=== PATIENT | female | born 1990 | race Caucasian/White ===

== ENCOUNTER 2017-01-13 10:48 | Emergency (ER) | payer OTHER ==
[~2017-01-13] VITALS: Ht 154.9 cm; Wt 83.9 kg
[~2017-01-13 10:48] MED LIST: BUTALB-ACETAMI1 EACH PO; CRUTCH1 EACH; HYDROXYZINE HCL25 MG PO; MEDROL4 M1 PO; NORCO 5-325 TA1 EACH PO; PROMETHAZINE HC25 M1 PO; ZYRTEC10 MG PO
[2017-01-13] MEDS ORDERED: TRAMADOL HCL50 MG PO (11:45)
== END 2017-01-13 11:58 | disposition home or self-care (01) ==
LOC: ED 10:48
DX: S92.351G Displaced fracture of fifth metatarsal bone, right foot, subsequent encounter for fracture with delayed healing (principal); F17.200 Nicotine dependence, unspecified, uncomplicated; Z91.018 Allergy to other foods; Z91.038 Other insect allergy status; Z88.5 Allergy status to narcotic agent; W01.0XXD Fall on same level from slipping, tripping and stumbling without subsequent striking against object, subsequent encounter
CPT/HCPCS: 73630; 99283

== ENCOUNTER 2018-01-28 05:23 | Emergency (ER) | payer MEDICAID ==
[~2018-01-28] VITALS: Ht 154.9 cm; Wt 76.2 kg
[~2018-01-28 05:23] MED LIST changes: +TRAMADOL HCL50 MG PO
== END 2018-01-28 05:46 | disposition home or self-care (01) ==
LOC: ED 05:23
DX: S60.562A Insect bite (nonvenomous) of left hand, initial encounter (principal); W57.XXXA Bitten or stung by nonvenomous insect and other nonvenomous arthropods, initial encounter; F17.200 Nicotine dependence, unspecified, uncomplicated; Z91.018 Allergy to other foods; Z91.030 Bee allergy status; Z88.5 Allergy status to narcotic agent
CPT/HCPCS: 99283

== ENCOUNTER 2019-04-21 18:01 | Emergency (ER) | payer OTHER ==
[~2019-04-21] VITALS: Ht 154.9 cm; Wt 76.2 kg
== END 2019-04-21 19:11 | disposition home or self-care (01) ==
LOC: ED 18:01
DX: S63.501A Unspecified sprain of right wrist, initial encounter (principal); F17.200 Nicotine dependence, unspecified, uncomplicated; Z71.6 Tobacco abuse counseling; Z91.018 Allergy to other foods; Z88.5 Allergy status to narcotic agent; Z91.038 Other insect allergy status
CPT/HCPCS: 73110; 99283-25; 99406

== ENCOUNTER 2021-12-21 18:03 | Emergency (ER) | payer OTHER ==
[~2021-12-21] VITALS: Ht 154.9 cm; Wt 81.9 kg
== END 2021-12-21 23:17 | disposition home or self-care (01) ==
LOC: ED 18:03
DX: S50.12XA Contusion of left forearm, initial encounter (principal); F17.200 Nicotine dependence, unspecified, uncomplicated; Z91.018 Allergy to other foods; Z91.030 Bee allergy status; Z88.5 Allergy status to narcotic agent; W01.0XXA Fall on same level from slipping, tripping and stumbling without subsequent striking against object, initial encounter
CPT/HCPCS: 73060; 73090; 99283-25; A9270

== ENCOUNTER 2023-07-07 06:34 | Emergency (ER) | payer OTHER ==
[~2023-07-07] VITALS: Ht 157.5 cm; Wt 91.9 kg
[2023-07-07 07:18] VITALS: BP 131/68
== END 2023-07-07 07:19 | disposition home or self-care (01) ==
LOC: ED 06:34
DX: S80.01XA Contusion of right knee, initial encounter (principal); W18.09XA Striking against other object with subsequent fall, initial encounter; Y99.0 Civilian activity done for income or pay; F17.200 Nicotine dependence, unspecified, uncomplicated; Z88.0 Allergy status to penicillin; Z88.5 Allergy status to narcotic agent; Z91.030 Bee allergy status; Z91.018 Allergy to other foods
CPT/HCPCS: 73560; 99283-25